=== PATIENT | female | born 1960 | race Caucasian/White ===

== ENCOUNTER 2016-11-30 10:04 | Outpatient (CLI) ==
--- NOTE | 2016-11-30 11:20 | DEXA ---
EXAM: DEXA scan. HISTORY: Osteoporosis screening. Post menopausal. COMPARISON: None available. TECHNIQUE: [employer] [id number]. DEXA scan lumbar spine performed. Quality of the study is good. BMD is 1.285 grams per square cent imeter. T-score 0.9. Z-score 1.2. DEXA scan hips performed. Quality of the study is good. BMD 0.917 grams per square centimeter. T-s core -0.7. Z-score -0.4. IMPRESSION: According to the World Health Organization classification, lumbar spine and hip bone mineral density demonstrates normal mineralization, with no increased fracture risk. Ten-year major osteoporotic f racture risk is 20.7%. Ten-year hip fracture risk is 0.6%.
== END 2016-11-30 10:05 | disposition home or self-care (01) ==
LOC: RAD 10:04
PROVIDERS: ATTEND Nurse Practitioner Women's Health
DX: Z13.820 Encounter for screening for osteoporosis (principal)